=== PATIENT | female | born 2000 | race African-American/Black ===

== ENCOUNTER 2022-08-28 02:01 | Emergency (ER) | payer OTHER ==
[~2022-08-28] VITALS: Ht 165.1 cm; Wt 77.3 kg
[2022-08-28 03:36] LABS: HEMATOCRIT 40.2 % (37.0-47.0); HEMOGLOBIN 13.9 g/dl (12.5-16.0); MEAN CELL VOLUME 71 fl (80.0-100.0); MEAN CORPUSCULAR HEMOGLOBIN 25 pg (27-31); MEAN CORPUSCULAR HGB CONC 35 g/dl (33.0-37.0); MEAN PLATELET VOLUME 10.3 fl (7.4-10.4); PLATELET COUNT 304 K/mm3 (130-400); RED BLOOD COUNT 5.65 M/mm3 (4.10-5.30); REDCELL DISTRIBUTION WIDTH-CV 14.9 % (11.5-14.5)
[2022-08-28 03:55] LABS: EOSINOPHIL 2 % (0-4); LYMPHOCYTE 10 % (20.0-51.0); NEUTROPHILS 82 % (42.0-75.2); PLATELET ESTIMATE NORMAL (NORMAL); TARGET CELLS 1+
[2022-08-28 03:58] LABS: BILIRUBIN,TOTAL 0.4 mg/dL (0.2-1.2); CALCIUM 8.8 mg/dL (8.4-10.2); CREATININE, serum 0.9 mg/dL (0.57-1.11); POTASSIUM 3.7 mmol/L (3.5-4.5); TOTAL PROTEIN 7.8 gm/dL (6.2-8.1)
[2022-08-28 05:00] VITALS: BP 121/77; PULSE 81; TEMP 98.1
== END 2022-08-28 05:00 | disposition home or self-care (01) ==
LOC: COL.ER 02:01
PROVIDERS: Emergency Medicine
DX: A08.4 Viral intestinal infection, unspecified (principal); R05.9 Cough, unspecified; R09.81 Nasal congestion; Z86.16 Personal history of COVID-19
CPT/HCPCS: J2405; J2550; J7030